=== PATIENT | female | born 1960 | race African-American/Black ===

== ENCOUNTER 2019-04-02 08:22 | Emergency (ER) | payer MEDICARE ==
[~2019-04-02] VITALS: Ht 157.5 cm; Wt 72.7 kg
[2019-04-02] MEDS ORDERED: LORA1TAB3 PO (08:35)
[2019-04-02] MEDS ORDERED: [UNRECOGNIZED DRUG - OTHER] OU (08:35)
[2019-04-02] MEDS ORDERED: VITAD1000 PO (08:35)
[2019-04-02] MEDS ORDERED: PRED1 PO (08:35)
[2019-04-02] MEDS ORDERED: FOLI1 PO (08:35)
[2019-04-02] MEDS ORDERED: HYDR-3706 PO (08:35)
[2019-04-02] MEDS ORDERED: XALA2.5OS OU (08:35)
[2019-04-02] MEDS ORDERED: METH2.5T6 PO (08:35)
[2019-04-02] MEDS ORDERED: LEVO25TA9 PO (08:35)
[2019-04-02] MEDS ORDERED: SIMV-259 PO (08:35)
[2019-04-02 10:00] VITALS: BP 134/89
== END 2019-04-02 11:33 | disposition home or self-care (01) ==
LOC: EMS 08:24
DX: S93.602A Unspecified sprain of left foot, initial encounter (principal); Z90.49 Acquired absence of other specified parts of digestive tract; Z90.710 Acquired absence of both cervix and uterus; Z98.890 Other specified postprocedural states; Z79.899 Other long term (current) drug therapy; X50.9XXA Other and unspecified overexertion or strenuous movements or postures, initial encounter; Y93.89 Activity, other specified; Y92.89 Other specified places as the place of occurrence of the external cause; Y99.8 Other external cause status